=== PATIENT | female | born 1995 | race African-American/Black ===

== ENCOUNTER 2025-03-22 13:20 | Emergency (ER) | payer MEDICAID ==
[~2025-03-22] VITALS: Ht 165.1 cm; Wt 145.0 kg
[2025-03-22 13:22] VITALS: O2SAT 98
[2025-03-22] MEDS: ACETAMINOPHEN 325MG TABLET PO STA (13:36)
[2025-03-22] MEDS: SODIUM CHLORIDE 0.9% 1,000 ML IV ONE (13:45)
[2025-03-22 14:08] LABS: HEMATOCRIT. 37.4 % (36.0-48.0); HEMOGLOBIN. 12.2 g/dL (12.0-16.0); MEAN CORPUSCULAR HEMOGLOBIN 25.9 pg (28.0-32.0); MEAN CORPUSCULAR HGB CONC 32.6 g/dL (31.0-37.0); MEAN CORPUSCULAR VOLUME 79.7 fL (81.0-99.0); MEAN PLATELET VOLUME 7.8 fl (7.4-10.4); PLATELET 447 x1000/uL (130-400); RED BLOOD CELL COUNT 4.69 mill/uL (4.2-5.4); RED CELL DISTRIBUTION WIDTH 16.8 % (11.6-14.6); WHITE BLOOD COUNT 10.9 x1000/uL (4.5-11.0)
[2025-03-22 14:09] LABS: DIFFERENTIAL COMMENT 1
[2025-03-22 14:13] LABS: CHLORIDE 105 mEq/L (98-107); POTASSIUM 3.8 mEq/L (3.5-5.1); SODIUM 138 mEq/L (136-145)
[2025-03-22 14:14] LABS: CALCIUM 9.8 mg/dL (8.7-10.4); CARBON DIOXIDE 28 mEq/L (21-32)
[2025-03-22 14:16] LABS: HCG SCREEN NEGATIVE
[2025-03-22 14:19] LABS: CREATININE 0.9 mg/dL (0.6-1.0); GLUCOSE 123 mg/dL (70-105); UREA NITROGEN BLOOD 15 mg/dL (9-23)
[2025-03-22 14:21] LABS: ALANINE AMINOTRANSFERASE 20 IU/L (10-49); ALBUMIN 4.8 g/dL (3.2-4.8); ASPARTATE AMINOTRANSFERASE 15 IU/L (<34); BILIRUBIN DIRECT 0.1 mg/dL (<=3.0); BILIRUBIN TOTAL 0.4 mg/dL (0.1-1.0); PROTEIN TOTAL 7.1 g/dL (6.0-8.3)
[2025-03-22] MEDS: ONDANSETRON HCL 4MG/2ML INJ IV STA (14:25)
[2025-03-22] MEDS: KETOROLAC 30MG/ML VIAL IV STA (14:25)
[2025-03-22 14:27] LABS: PLATELET ESTIMATE INCREASED
[2025-03-22] MEDS ORDERED: ONDA-239 PO (15:33)
[2025-03-22 15:46] VITALS: BP 122/65; PULSE 107; RESP 22; TEMP 36.9; O2SAT 99
== END 2025-03-22 16:38 | disposition home or self-care (01) ==
LOC: ER 13:20 → CANBEDREQ 15:56 → ER 16:38
DX: K80.50 Calculus of bile duct without cholangitis or cholecystitis without obstruction (principal); Z98.890 Other specified postprocedural states
CPT/HCPCS: 80076; 80048; 84703; 83690; 85025; 36415; 74176; 76705; 96361; 96374; 96375; 99285; J1885; J2405; J7030; Z7610 ×2; A4606